=== PATIENT | female | born 1985 | race Two or more races ===

== ENCOUNTER 2025-02-07 04:14 | Inpatient (IN) | payer OTHER ==
[~2025-02-07] VITALS: Ht 121.9 cm; Wt 72.6 kg
[2025-02-07 04:26] VITALS: BP 134/76
[2025-02-07] MEDS ORDERED: CEFAZOLIN SODIUM 1,000 MG VIAL IV NR (05:00)
[2025-02-07] MEDS ORDERED: RINGERS SOLUTION,LACTATED 1,000 ML IV SCH (05:00)
[2025-02-07 06:01] VITALS: BP 124/71; O2SAT 98
[2025-02-07] MEDS ORDERED: OXYTOCIN 10 UNITS/ML VIAL ONE ×2 (07:27→23:31)
[2025-02-07] MEDS ORDERED: ERYTHROMYCIN BASE OPHT 1GM EACH TUBE OP ONE (07:27)
[2025-02-07] MEDS ORDERED: CARBOPROST TROMETHAMINE 250 MCG/ML AMPUL IM ONE (07:27)
[2025-02-07] MEDS ORDERED: METHYLERGONOVINE MALEATE 0.2 MG/ML AMPUL ONE (07:28)
[2025-02-07] MEDS ORDERED: MEPERIDINE HCL/PF 25 MG/ML VIAL IM SCH (09:30)
[2025-02-07] MEDS ORDERED: MORPHINE SULFATE 4 MG/ML VIAL IV ONE (10:10)
[2025-02-07] MEDS ORDERED: PROMETHAZINE HCL 25 MG/ML AMPUL ONE (10:28)
[2025-02-07] MEDS ORDERED: MEPERIDINE HCL 25 MG/ML AMPUL IM ONE (10:40)
[2025-02-07] MEDS ORDERED: PROMETHAZINE HCL 50 MG/ML AMPUL IV ONE (10:40)
[2025-02-07 11:34] VITALS: BP 131/76
[2025-02-07] MEDS ORDERED: PROMETHAZINE HCL 25 MG/ML AMPUL IV SCH (12:00)
[2025-02-07] MEDS ORDERED: CEFAZOLIN SODIUM 1,000 MG VIAL IV SCH (12:00)
[2025-02-07] MEDS ORDERED: KETOROLAC TROMETHAMINE 30 MG VIAL IM PRN (12:15)
[2025-02-07 16:42] VITALS: BP 143/81
[2025-02-07 20:34] VITALS: BP 123/69
[2025-02-07] MEDS ORDERED: DEXTROSE 5%-LACTATED RINGERS 1,000 ML IV SCH (23:45)
[2025-02-08 00:02] VITALS: BP 125/65
[2025-02-08 08:53] LABS: HEMATOCRIT 25.2 % (36.0-45.00); MEAN CELL VOLUME 97.7 fL (80.00-100.00); MEAN CORPUSCULAR HGB CONC 35.7 g/dl (32.0-36.0); RED BLOOD COUNT 2.57 M/uL (4.00-6.00); RED CELL DISTRIBUTION WIDTH 14.5 % (11.5-14.5)
[2025-02-08 08:58] VITALS: BP 132/65
[2025-02-08 09:05] LABS: PLATELET COUNT 119 K/uL (150-450)
[2025-02-08] MEDS ORDERED: IRON FUM,PS/FOLIC/BCOMP,C NO.9 1 CAP CAPSULE PO STA (12:37)
[2025-02-08] MEDS ORDERED: NAPROXEN 500 MG TABLET PO SCH (13:00)
[2025-02-08 16:00] VITALS: BP 131/78
[2025-02-08] MEDS ORDERED: IRON FUM,PS/FOLIC/BCOMP,C NO.9 1 CAP CAPSULE PO SCH (17:00)
[2025-02-09 00:39] VITALS: BP 132/76
[2025-02-09 07:54] LABS: HEMATOCRIT 25.3 % (36.0-45.00); MEAN CELL VOLUME 97.9 fL (80.00-100.00); MEAN CORPUSCULAR HEMOGLOBIN 34.7 pg (27.00-32.0); MEAN CORPUSCULAR HGB CONC 35.4 g/dl (32.0-36.0); PLATELET COUNT 138 K/uL (150-450); RED BLOOD COUNT 2.58 M/uL (4.00-6.00); RED CELL DISTRIBUTION WIDTH 14.4 % (11.5-14.5)
[2025-02-09 08:00] VITALS: BP 129/79
[2025-02-09] MEDS ORDERED: IRON FUM,PS/FOLIC/BCOMP,C NO.9 1 CAP CAPSULE PO SCH (11:29)
== END 2025-02-09 12:49 | disposition home or self-care (01) | DRG 783 ==
LOC: LDR 04:14 → OB/GYN 04:14 → O/R 07:47 → OB/GYN 10:18
PROVIDERS: ADMIT Specialist; ATTEND Specialist
PROC: 0UB70ZZ Excision of Bilateral Fallopian Tubes, Open Approach (ICD-10-PCS; 2025-02-07)
PROC: 4A1HXCZ Monitoring of Products of Conception, Cardiac Rate, External Approach (ICD-10-PCS; 2025-02-07)
PROC: 10D00Z1 Extraction of Products of Conception, Low, Open Approach (ICD-10-PCS; principal; 2025-02-07 07:00)
DX: O32.2XX0 Maternal care for transverse and oblique lie, not applicable or unspecified (principal); O24.82 Other pre-existing diabetes mellitus in childbirth; O34.211 Maternal care for low transverse scar from previous cesarean delivery; Z3A.37 37 weeks gestation of pregnancy; Z37.0 Single live birth; E13.8 Other specified diabetes mellitus with unspecified complications; Z79.4 Long term (current) use of insulin; Z30.2 Encounter for sterilization